=== PATIENT | male | born 1995 | race Caucasian/White ===

== ENCOUNTER 2018-06-16 16:07 | Emergency (ER) | payer BC ==
[2018-06-16 16:13] VITALS: BP 145/92; PULSE 97; RESP 18; TEMP 99
[2018-06-16] MEDS ORDERED: DIPH,PERTUS(ACELL)TETVAC-LF 0.5 ML VIAL IM ONE (16:24)
[2018-06-16] MEDS ORDERED: LIDOCAINE 1% INJ 10MG/ML (20 ML MDV) SQ ONE (16:24)
--- NOTE | 2018-06-16 16:45 | XR ---
EXAMINATION TYPE: XR hand complete LT DATE OF EXAM: 06/16/2018 COMPARISON: NONE HISTORY: Pain TECHNIQUE: 3 views FINDINGS: Metacarpals are intact. Carpal bones are intact. I see no fracture. There is a 3 x 1 cm metallic density overlying the anterior soft tissues of the carpus consistent wit h a foreign body. IMPRESSION: Soft tissue foreign body. No fracture seen.
--- NOTE | 2018-06-16 18:05 | ED ---
General Adult HPI - General Chief complaint: Skin/Abscess/Foreign Body Stated complaint: Fb in hand Time Seen by Provider: 06/16/18 16:15 Source: patient, RN notes reviewed Mode of arrival: ambulatory Limitations: no limitations - History of Present Illness Initial comments: 23-year-old male presents to the emergency department for chief for an body in the left hand. Patient states he was repairing a shower when he accidentally hit his hand against a piece of metal and it got stuck. Patient is up-to-date on tetanus. Patient denies any difficulty moving his fingers. Denies any other injuries.Patient has no other complaints at this time including shortness of breath, chest pain, abdominal pain, nausea or vomiting, headache, or visual changes. - Related Data Home Medications Medication Instructions Recorded Confirmed Lisdexamfetamine Dimesylate 1 tab PO DAILY 12/18/13 12/18/13 [Vyvanse] Previous Rx's Medication Instructions Recorded Amoxicillin/Potassium Clav 1 each PO Q12HR #14 tab 12/18/13 [Augmentin 875-125 Tablet] Cephalexin [Keflex] 500 mg PO Q6HR 3 Days #12 cap 06/16/18 Allergies Allergy/AdvReac Type Severity Reaction Status Date / Time No Known Allergies Allergy Verified 06/16/18 16:13 Review of Systems ROS Statement: Those systems with pertinent positive or pertinent negative responses have been documented in the HPI. ROS Other: All systems not noted in ROS Statement are negative. Past Medical History Past Medical History: No Reported History Additional Past Medical History / Comment(s): brain injury History of Any Multi-Drug Resistant Organisms: None Reported Past Surgical History: No Surgical Hx Reported Past Psychological History: ADD/ADHD Smoking Status: Never smoker Past Alcohol Use History: Occasional Past Drug Use History: None Reported General Exam Limitations: no limitations General appearance: alert, in no apparent distress Head exam: Present: atraumatic, normocephalic, normal inspection Eye exam: Present: normal appearance, PERRL, EOMI. Absent: scleral icterus, conjunctival injection, periorbital swelling ENT exam: Present: normal exam, mucous membranes moist Neck exam: Present: normal inspection, full ROM. Absent: tenderness, m eningismus, lymphadenopathy Respiratory exam: Present: normal lung sounds bilaterally. Absent: respiratory distress, wheezes, rales, rhonchi, stridor Cardiovascular Exam: Present: regular rate, normal rhythm, normal heart sounds. Absent: systolic murmur, diastolic murmur, rubs, gallop, clicks Extremities exam: Present: full ROM (Full range of motion of all digits in the left hand), normal capillary refill (Capillary refill less than 2 seconds, radial pulse 2+ and left upper extremity), other (Patient has a 3 cm x 1 cm cylindrical piece of metal in the proximal ulnar palmar aspect of the left hand). Absent: normal inspection, tenderness, pedal edema, joint swelling, calf tenderness Neurological exam: Present: alert, oriented X3, CN II-XII intact Psychiatric exam: Present: normal affect, normal mood Course Vital Signs 06/16/18 16:10 Temperature 99.0 F Pulse Rate 97 Respiratory 18 Rate Blood Pressure 145/92 O2 Sat by Pulse 96 Oximetry Procedures - Laceration Laceration #1 Consent Obtained: verbal consent Indication: laceration Site: hand Size (cm): 1 Description: linear Depth: simple, single layer Anesthetic Used: lidocaine 1% Anesthesia Technique: local infiltration Amount (mls): 5 Pre-repair: wound explored, irrigated extensively (With saline pressure irrigation), foreign body removed (Was able to remove foreign body using traction countertraction) Type of Sutures: nylon Size of Sutures: 4-0 Number of Sutures: 1 Technique: simple, interrupted Patient Tolerated Procedure: well, no complications Medical Decision Making - Medical Decision Making 23-year-old male presents to the emergency department for a chief for body in left hand. Patient was fixing his shower when he went to push against the equipment and part of the metal went into his hand. X-ray shows soft tissue foreign body about 3 x 1 cm overlying the anterior soft tissues of the carpus. Patient has full range of motion. No neurovascular compromise present. The area was numbed and foreign body was easily removed. However hitting tissue is protruding from puncture. Therefore this was trimmed and wound was loosely approximate with one suture to allow for draining as this is a puncture wound. Patient was put on Keflex. Tetanus is updated. If he has any worsening symptoms. He will return in 7-10 days to have sutures removed. Otherwise he will follow-up with primary care. Disposition Clinical Impression: Soft tissues foreign body, Puncture wound Disposition: HOME SELF-CARE Condition: Good Instructions (If sedation given, give patient instructions): Care For Your Stitches (ED), Soft Tissue Foreign Body (ED), Puncture Wound (ED) Additional Instructions: Please monitor for signs of infection such as spreading or streaking redness, drainage, fever, or pain with movement of the fingers. If this occurs return immediately to the emergency department. Take antibiotic as directed. Follow up with primary care in 1-2 days. Return to the emergency department in 7-10 days to have suture removed. Prescriptions: Cephalexin [Keflex] 500 mg PO Q6HR 3 Days #12 cap Is patient prescribed a controlled substance at d/c from ED?: No Referrals: Audrey Avina MD [STAFF PHYSICIAN] - 1-2 days Time of Disposition: 18:04
== END 2018-06-16 18:44 | disposition home or self-care (01) ==
LOC: EC 16:07
DX: S61.442A Puncture wound with foreign body of left hand, initial encounter (principal); Z23 Encounter for immunization; F90.9 Attention-deficit hyperactivity disorder, unspecified type; Z79.899 Other long term (current) drug therapy; W45.8XXA Other foreign body or object entering through skin, initial encounter; Y92.009 Unspecified place in unspecified non-institutional (private) residence as the place of occurrence of the external cause
CPT/HCPCS: 73130; 90715; 99283; 12041; 90471; J2001